=== PATIENT | male | born 1980 | race Caucasian/White ===

== ENCOUNTER 2019-05-01 08:06 | Emergency (ER) | payer SELFPAY ==
[~2019-05-01] VITALS: Ht 170.2 cm; Wt 94.1 kg
[2019-05-01 09:53] VITALS: BP 123/77
[2019-05-01] MEDS ORDERED: IBUPROFEN 800 MG TABLET PO ONE (10:00)
[2019-05-01] MEDS ORDERED: BACITRACIN 0.9 GM PACKET OINTMENT TP ONE (10:01)
== END 2019-05-01 10:08 | disposition home or self-care (01) ==
LOC: EMS 08:13
DX: S70.11XA Contusion of right thigh, initial encounter (principal); S80.811A Abrasion, right lower leg, initial encounter; S30.811A Abrasion of abdominal wall, initial encounter; R03.0 Elevated blood-pressure reading, without diagnosis of hypertension; V03.99XA Pedestrian with other conveyance injured in collision with car, pick-up truck or van, unspecified whether traffic or nontraffic accident, initial encounter; Y93.89 Activity, other specified; Y92.511 Restaurant or cafe as the place of occurrence of the external cause; Y99.8 Other external cause status

== ENCOUNTER 2019-05-03 08:28 | Emergency (ER) | payer SELFPAY ==
[~2019-05-03] VITALS: Ht 170.2 cm; Wt 95.5 kg
[2019-05-03] MEDS ORDERED: KETOROLAC TROMETHAMINE 60 MG/2 ML VIAL IM ONE (11:30)
[2019-05-03 12:45] VITALS: BP 128/76
== END 2019-05-03 12:55 | disposition home or self-care (01) ==
LOC: EMS 08:30
DX: S20.211A Contusion of right front wall of thorax, initial encounter (principal); S30.0XXA Contusion of lower back and pelvis, initial encounter; W22.8XXA Striking against or struck by other objects, initial encounter; Y93.89 Activity, other specified; Y92.511 Restaurant or cafe as the place of occurrence of the external cause; Y99.8 Other external cause status
CPT/HCPCS: 71101; 73502; 96372; 99283; J1885